=== PATIENT | female | born 2005 | race Caucasian/White ===

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

== ENCOUNTER 2025-01-31 01:21 | Emergency (ER) | payer MEDICAID ==
[~2025-01-31] VITALS: Ht 167.6 cm; Wt 97.8 kg
[~2025-01-31 01:21] MED LIST changes: +IBUP-2766 PO; -IBUP100O20 PO
[2025-01-31 01:30] VITALS: TEMP 97.4
[2025-01-31] MEDS: normal saline 1000ml 1,000 ML IV ONE (02:39)
[2025-01-31] MEDS: ondansetron/PF 4mg/2ml inj IV ONE (03:16)
[2025-01-31 03:19] VITALS: BP 118/70; PULSE 78; RESP 16; O2SAT 98
--- NOTE | 2025-01-31 04:49 | Physician Documentation ---
History of Present Illness ~ Chief Complaint: Abdominal Pain w/vomiting Stated Complaint: VOMITING Time Seen by MD: 02:13 Primary Medical Doctor: [facility] Mode of Arrival: POV HPI 19 year old female with nausea, vomiting, and diarrhea today. Denies abdominal pain, fevers, urinary symptoms. Last Menstrual Period: Jan 31, 2025 Medication Reconciliation Allergies: Coded Allergies: morphine (Verified Allergy, Severe, BODY BECOMES RIGID/VOMITING, 01/31/25) Scheduled Amoxicillin (Amoxicillin), 1 TAB PO Q8H Hydrocortisone (hydrocortisone 1% cream), 1 APPLIC TOP Q12H Ibuprofen (Ibuprofen), 1 TAB PO Q8H Ibuprofen (Ibuprofen), 1 TAB PO Q8H Ibuprofen 100MG/5ML Susp* (Motrin 100 MG/5ML Susp.*), 15 ML PO Q6H Multivitamins (Children's Chewable Vitamin), 1 EACH PO DAILY, (Reported) Neomy Sulf/Polymyx B Sulf/Hc (Cortisporin Otic Solution), 2 DROP OT TID Neomy Sulf/Polymyx B Sulf/Hc (Cortisporin Otic Solution), 2 DROP OT TID Ondansetron (Zofran Odt), 4 MG PO QID Ondansetron Hcl (Zofran), 1 TAB PO Q8H Penicillin V Potassium* (Penicillin VK*), 500 MG PO Q8H Past Medical History Past Medical History: UTI Past Surgical History: no surgical history Last Menstrual Period: Jan 31, 2025 Alcohol Use: None Drug Use: none Lives with: Family Lives In: Home Occupation: student, child Review of Systems All Other Systems at this time: Reviewed and Negative Physical Exam Vital Signs: RN Vital Signs have been reviewed: Yes, Temperature: 97.4, Heart Rate: 78, Respiratory Rate: 16, BP: 118/70, Pulse Oximetry: 98, Weight: 97.850 Oxygen Flow Rate: 0 Physical Exam HEENT: PERRL, moist oral mucosa, EOMI Pulmonary: No respiratory distress MSK: no deformity Skin: w/d/i, no rash Neuro: alert, nonfocal Psych: normal affect Progress Results/Orders Results/Orders Completed Orders - FRANCISCO J GAUTHIER MD Normal Saline 1000ml (Sodium Chloride 10 (01/31/25 02:20) Ondansetron Inj. (Zofran 4mg/2ml Vial) (01/31/25 03:15) Medications Received in ER Medications (Trade) Dose Ordered Sig/Mich Route PRN Reason Start Time Stop Time Status Last Admin Dose Admin Sodium Chloride 1,000 ml @ 1,000 mls/hr ONCE ONCE IV 01/31/25 02:20 01/31/25 03:19 DC 01/31/25 02:39 1,000 MLS/HR (Zofran 4mg/2ml vial) 4 mg ONCE ONCE IV 01/31/25 03:15 01/31/25 03:16 DC 01/31/25 03:16 4 MG Vital Signs 01/31/25 01/31/25 01/31/25 01:30 02:20 03:19 Temp 97.4 Pulse 89 78 Resp 18 18 16 B/P (MAP) 116/74 118/70 Pulse Ox 99 98 O2 Flow Rate 0 Medical Decision Making Findings 19 year old female with likely viral gastroenteritis. IVF and meds, return precautions. Additional Comments Ddx = viral gastroenteritis, food poisoning, infectious enteritis Departure Disposition: 01 HOME / SELF CARE / HOMELESS Impression: Primary Impression: Gastroenteritis Condition: Stable Discharge Instructions: Viral Gastroenteritis, Adult, [id number] Education Educated: Patient Educated regarding: diagnosis, treatment, prognosis, need for follow up Signature Scribe Signature: . Attestation: . FRANCISCO J GAUTHIER MD Jan 31, 2025 04:49
== END 2025-01-31 03:23 | disposition home or self-care (01) ==
LOC: ER 01:22
DX: K52.9 Noninfective gastroenteritis and colitis, unspecified (principal); Z88.5 Allergy status to narcotic agent; Z79.899 Other long term (current) drug therapy
CPT/HCPCS: 96374; 99283; J2405; J7030